=== PATIENT | female | born 1955 | race American Indian/Alaskan Native ===

== ENCOUNTER 2018-01-13 14:33 | Emergency (ER) | payer MEDICARE ==
[2018-01-13 14:41] VITALS: BP 144/72
[2018-01-13] MEDS ORDERED: ZOFRAN IM ONE (14:59)
--- NOTE | 2018-01-13 15:04 | Emergency Department Report ---
ED Abdominal Pain HPI - General Chief Complaint: Nausea/Vomiting/Diarrhea Stated Complaint: DIAREHEA FREQUENT Time Seen by Provider: 01/13/18 14:53 Source: patient Mode of arrival: Ambulatory Limitations: No Limitations - History of Present Illness Initial Comments: Patient is 62 years old female presented to the ER complaining of a 6 month history of watery diarrhea on and off. Patient stated that she did follow by her primary care physician and she was given Imodium but is not helping now. Patient denied any fever, dizziness or weight loss. No hematemesis or hematochezia. MD Complaint: abdominal pain -: days(s) Location: diffuse Quality: cramping - Related Data Allergies Allergy/AdvReac Type Severity Reaction Status Date / Time Penicillins Allergy Unknown Verified 01/13/18 14:41 ED Review of Systems ROS: Stated complaint: DIAREHEA FREQUENT Other details as noted in HPI Comment: All other systems reviewed and negative Constitutional: denies: chills, fever Cardiovascular: denies: chest pain, palpitations Gastrointestinal: abdominal pain, nausea, vomiting, diarrhea. 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 Absent: tenderness, meningismus, lymphadenopathy, thyromegaly - Respiratory Respiratory exam: Present: normal lung sounds bilaterally - Cardiovascular Cardiovascular Exam: Present: regular rate, normal rhythm, normal heart sounds - GI/Abdominal GI/Abdominal exam: Present: soft, normal bowel sounds. Absent: distended, tenderness, guarding, rebound, rigid, organomegaly, mass, bruit, pulsatile mass , hernia - Extremities Exam Extremities exam: Present: normal inspection, full ROM, normal capillary refill - Back Exam Back exam: Present: normal inspection, full ROM. Absent: tenderness, CVA tenderness (R), CVA tenderness (L), muscle spasm, paraspinal tenderness, vertebral tenderness, rash noted - Neurological Exam Neurological exam: Present: alert, oriented X3, CN II-XII intact, normal gait - Skin Skin exam: Present: warm, intact, normal color ED Course Vital Signs 01/13/18 14:36 Temperature 98.9 F Pulse Rate 94 H Respiratory 20 Rate Blood Pressure 144/72 O2 Sat by Pulse 98 Oximetry ED Medical Decision Making - Lab Data Result diagrams: 01/13/18 15:56 01/13/18 15:56 Critical care attestation.: If time is entered above; I have spent that time in minutes in the direct care of this critically ill patient, excluding procedure time. ED Disposition Clinical Impression: Diarrhea, Abdominal pain, Gastroenteritis Disposition: DC-01 TO HOME OR SELFCARE Is pt being admited?: No Condition: Stable Instructions: Abdominal Pain (ED) Referrals: RYLAND READ MD [Primary Care Provider] - 3-5 Days ROSALEE CHRISTENSEN MD [Staff Physician] - 3-5 Days
[2018-01-13 16:23] LABS: Basophils % (Auto) 0.5 % (0.0-1.8); Eosinophils # (Auto) 0.1 K/mm3 (0.0-0.4); Eosinophils % (Auto) 1.9 % (0.0-4.3); Hematocrit 39.4 % (30.3-42.9); Hemoglobin 13.2 gm/dl (10.1-14.3); Lymphocytes # (Auto) 2.1 K/mm3 (1.2-5.4); Lymphocytes % (Auto) 30.5 % (13.4-35.0); Mean Corpuscular HGB Conc 33 % (30-34); Mean Corpuscular Hemoglobin 30 pg (28-32); Mean Corpuscular Volume 91 fl (79-97); Monocytes # (Auto) 0.5 K/mm3 (0.0-0.8); Monocytes % (Auto) 7.1 % (0.0-7.3); Platelet Count 148 K/mm3 (140-440); Red Blood Count 4.34 M/mm3 (3.65-5.03)
[2018-01-13 16:48] LABS: Alanine Aminotransferase 20 units/L (7-56); Albumin 4.7 g/dL (3.9-5); BUN/Creatinine Ratio 14; Blood Urea Nitrogen 10 mg/dL (7-17); Calcium 9.6 mg/dL (8.4-10.2); Hemolysis Index 6
== END 2018-01-13 17:59 | disposition home or self-care (01) ==
LOC: ED 14:33
DX: K52.9 Noninfective gastroenteritis and colitis, unspecified (principal); I10 Essential (primary) hypertension; E11.9 Type 2 diabetes mellitus without complications; F41.0 Panic disorder [episodic paroxysmal anxiety]; Z88.0 Allergy status to penicillin; Z90.710 Acquired absence of both cervix and uterus
CPT/HCPCS: 36415; 80053; 85025; 96372; 99283; J2405

== ENCOUNTER 2022-02-16 12:48 | Emergency (ER) | payer MEDICARE ==
[2022-02-16 13:06] VITALS: BP 157/91
--- NOTE | 2022-02-16 13:29 | Emergency Department Report ---
Chief Complaint: Headache Stated Complaint: PAIN FRONTAL OCCUPITAL - HPI History of Present Illness: Patient presents to ER for re-evaluation. Had hadan headache for over 2 weeks. Has seen her neurologist and he wanted her to have MRI and it is schedule to have one at the end of the month. Had tried meds that has not help. - Exam Vital Signs: Vital Signs 02/16/22 13:05 Temperature 97.3 F L Pulse Rate 89 Respiratory 20 Rate Blood Pressure 157/91 [Right] O2 Sat by Pulse 97 Oximetry MSE screening note: Focused history and physical exam performed. Due to findings the following was ordered: ED Disposition for MSE Condition: Stable
== END 2022-02-17 01:46 | disposition left against medical advice (07) ==
LOC: ED 12:48
DX: R51.9 Headache, unspecified (principal)
CPT/HCPCS: 99281